=== PATIENT | male | born 1960 | race Caucasian/White ===

== ENCOUNTER → 2022-02-07 | Outpatient (CLI) | payer BC ==
--- NOTE | 2022-02-07 14:29 | CT ---
EXAMINATION TYPE: CT foot LT wo con CT DLP: 251 mGycm, Automated exposure control for dose reduction was used. DATE OF EXAM: 02/07/2022 2:06 PM COMPARISON: None. CLINICAL INDICATION:Male, 61 years old with history of M79.672 PAIN IN LEFT FOOT; TECHNIQUE: Axial images were obtained of the left foot without the use of IV contrast. Additional co félix and sagittal reformatted images and soft tissue and bone window were obtained for review. 3-D r econstruction was created on a separate workstation. FINDINGS: There is no evidence of fracture, subluxation, or dislocation. No significant soft tissue swelling or joint effusion is identified. No focal muscular atrophy or edema is identified. No radiop aque foreign body identified. Plantar calcaneal spur noted. Degenerative changes of the first MTP valeria nt. IMPRESSION: No acute fracture or dislocation.
== END | disposition home or self-care (01) ==
LOC: RADCTMAIN 13:39
PROVIDERS: ATTEND Family Medicine
DX: M79.672 Pain in left foot (principal)

== ENCOUNTER → 2023-02-21 | Outpatient (CLI) | payer BC ==
--- NOTE | 2023-02-21 20:12 | CT ---
EXAMINATION TYPE: CT lumbar spine w con DATE OF EXAM: 02/21/2023 COMPARISON: HISTORY: RADICULOPATHY, HX OF PAIN STIMULATOR CT DLP: 1680.60 mGycm CONTRAST: CT scan of the lumbar is performed with IV Contrast, patient injected with 100 mL of Isovue 300. TECHNIQUE: CT of the lumbar spine is performed on a spiral scan at 3 mm thick sections. Reconstructed images are performed in the coronal and sagittal planes. FINDINGS: Stimulator leads enter the T12-L1 posterior spinal canal. There is a wedge deformity of L2 with approximately 30% loss of anterior vertebral body height. T12-L1: No focal disc herniation or significant disc bulge is evident. No spinal canal stenosis or neural foraminal stenosis is present. L1-L2: No focal disc herniation or significant disc bulge is evident. No spinal canal stenosis or n eural foraminal stenosis is present L2-L3: No focal disc herniation or significant disc bulge is evident. No spinal canal stenosis or n eural foraminal stenosis is present L3-L4: Mild broad-based disc bulge is present with mild anterior thecal sac flattening. No AP spinal canal stenosis present. Neural foramen and mild narrowing bilaterally. L4-L5: Broad-based disc bulge is mild anterior thecal sac flattening. No AP spinal canal stenosis is present. Moderate bilateral foraminal narrowing is present. L5-S1: There may be a central moderate-sized disc herniation at L5-S1 with mild to moderate anterior thecal sac compression. AP spinal canal stenosis is not present. Mild bilateral foraminal narrowing i s present at Vertebral alignment appears normal. Note is made of diverticular changes within the sigmoid colon IMPRESSION: 1. Moderate size Central disc herniation suspected at L5-S1 with mild anterior thecal sac compression . No stenosis. 2. Disc bulge at L3-4 L4-5 with mild anterior thecal sac flattening without stenosis. 3. 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
== END | disposition home or self-care (01) ==
LOC: RADCTMAIN 14:17
PROVIDERS: ATTEND Orthopaedic Surgery Orthopaedic Surgery of the Spine
DX: S32.020D Wedge compression fracture of second lumbar vertebra, subsequent encounter for fracture with routine healing (principal); M51.16 Intervertebral disc disorders with radiculopathy, lumbar region; E66.9 Obesity, unspecified
CPT/HCPCS: 72132; Q9967

== ENCOUNTER 2024-06-03 08:07 | Day surgery (SDC) | payer BC ==
[2024-05-30 13:53] VITALS: BMI 34.2
[2024-06-03 08:33] VITALS: TEMP 97.7
[2024-06-03] MEDS: LACTATED RINGERS 1,000 ML IV SCH (08:45)
[2024-06-03] MEDS: IV FLUID CONTINUATION 1,000 ML IV ONE (08:46)
[2024-06-03] MEDS ORDERED: PROPOFOL 10 MG/ML 20 ML VIAL IV ONE (09:16)
--- NOTE | 2024-06-03 09:38 | P.PCN ---
Date of Procedure: 06/03/24 Procedure(s) Performed: BRIEF HISTORY: Patient is a 63-year-old pleasant white male scheduled for an elective colonoscopy as a part of evaluation of prior history of colon polyps. PROCEDURE PERFORMED: Colonoscopy. PREOPERATIVE DIAGNOSIS: History of colon polyps. IV sedation per Anesthesia. PROCEDURE: After informed consent was obtained, the patient, was brought into the endoscopy unit. IV sedation was administered by Anesthesia under continuous monitoring. Digital rectal examination was normal. Initially the Olympus CF-160 flexible video colonoscope was then inserted in the rectum, gradually advanced into the cecum without any difficulty. Careful examination was performed as the scope was gradually being withdrawn. Ileocecal valve and the appendiceal orifice were visualized and appeared normal. Prep was excellent. Mucosa of the cecum, ascending colon, transverse colon, descending colon, sigmoid colon, and rectum appeared normal. Scattered sigmoid diverticulosis. Retroflexion was performed in the rectum and no lesions were seen. The patient tolerated the procedure well. IMPRESSION: Normal-appearing colon from rectum to cecum with no evidence of colorectal neoplasia Scattered sigmoid diverticulosis. RECOMMENDATIONS: Findings of this examination were discussed with the patient as well as his family.. He was advised to have repeat screening colonoscopy in 10 years.
[2024-06-03 09:43] VITALS: RESP 16
[2024-06-03 10:03] VITALS: BP 108/67; PULSE 73
== END 2024-06-03 10:11 ==
LOC: ORWHC2ENDO 08:07
PROVIDERS: ATTEND Internal Medicine Gastroenterology
DX: K57.30 Diverticulosis of large intestine without perforation or abscess without bleeding (principal); E78.5 Hyperlipidemia, unspecified; K21.9 Gastro-esophageal reflux disease without esophagitis; M54.50 Low back pain, unspecified; Z86.0100 Personal history of colon polyps, unspecified; Z88.1 Allergy status to other antibiotic agents; Z79.899 Other long term (current) drug therapy
CPT/HCPCS: 45378; J2704